=== PATIENT | male | born 1985 | race Caucasian/White ===

== ENCOUNTER 2021-03-30 08:35 | Emergency (ER) | payer MEDICAID ==
[~2021-03-30] VITALS: Ht 182.9 cm; Wt 107.0 kg
[2021-03-30] MEDS ORDERED: KETOROLAC 30MG/ML VIAL IV STA (09:03)
[2021-03-30] MEDS ORDERED: ONDANSETRON HCL 4MG/2ML INJ IV STA (09:03)
[2021-03-30] MEDS ORDERED: SODIUM CHLORIDE 0.9% 1,000 ML IV ONE (09:15)
[2021-03-30 09:43] LABS: BASOPHILS % 0.3 % (0.0-2.0); EOSINOPHILS % 0.6 % (0.0-5.0); HEMATOCRIT. 47.9 % (42.0-52.0); HEMOGLOBIN. 16.7 g/dL (14.0-18.0); LYMPHOCYTES % 16.7 % (20.0-50.0); MEAN CORPUSCULAR HEMOGLOBIN 30.6 pg (28.0-32.0); MEAN CORPUSCULAR VOLUME 87.7 fL (80.0-94.0); MEAN PLATELET VOLUME 8.5 fl (7.4-10.4); NEUTROPHILS % 76.4 % (40.0-76.0); PLATELET 314 x1000/uL (130-400); RED BLOOD CELL COUNT 5.46 mill/uL (4.7-6.1); RED CELL DISTRIBUTION WIDTH 12.9 % (11.6-14.6)
[2021-03-30 09:46] LABS: CHLORIDE 108 mEq/L (98-107)
[2021-03-30 09:50] LABS: PROTHROMBIN TIME 10.6 sec (9.6-11.0)
[2021-03-30 10:15] LABS: CLARITY URINE CLEAR (CLEAR); COLOR URINE YELLOW (YELLOW); KETONES URINE NEGATIVE (NEGATIVE); LEUKOCYTE ESTERASE URINE NEGATIVE (NEGATIVE); NITRITE URINE NEGATIVE (NEGATIVE); OCCULT BLOOD URINE NEGATIVE (NEGATIVE); PH URINE 7.5 (4.5-8.0); PROTEIN URINE NEGATIVE (NEGATIVE); SPECIFIC GRAVITY URINE 1.011 (1.005-1.030); UROBILINOGEN URINE 0.2 E.U./dL (0.2-1.0)
[2021-03-30] MEDS ORDERED: MAGNESIUM/ALUMINUM HYDROXIDE/SIMETHICONE 30ML UDC PO STA (11:08)
[2021-03-30] MEDS ORDERED: VISCOUS LIDOCAINE 2% 15 ML UDC PO STA (11:08)
[2021-03-30] MEDS ORDERED: DICYCLOMINE 10 MG/5 ML ORAL SYR PO STA (11:08)
[2021-03-30 12:30] VITALS: BP 132/80
[2021-03-30] MEDS ORDERED: TOPUD PO (12:32)
[2021-03-30] MEDS ORDERED: ONDA4TAB5 PO (12:32)
== END 2021-03-30 13:26 | disposition home or self-care (01) ==
LOC: ER 08:35
DX: R10.13 Epigastric pain (principal); M54.9 Dorsalgia, unspecified; R03.0 Elevated blood-pressure reading, without diagnosis of hypertension
CPT/HCPCS: 36415; 74176; 80053; 81003; 83690; 85025; 85610; 93005; 96361; 96374; 96375; 99285; J1885; J2405; J7030